=== PATIENT | male | born 1985 | race Caucasian/White ===

== ENCOUNTER 2017-10-08 14:57 | Emergency (ER) | payer MEDICAID ==
[~2017-10-08] VITALS: Ht 193 cm; Wt 76.2 kg
[2017-10-08 15:29] VITALS: BP 144/91
== END 2017-10-08 17:55 | disposition home or self-care (01) ==
LOC: ER 14:57
DX: K59.00 Constipation, unspecified (principal); R10.84 Generalized abdominal pain; R11.2 Nausea with vomiting, unspecified
CPT/HCPCS: 74176

== ENCOUNTER 2017-12-02 08:31 | Emergency (ER) | payer MEDICAID ==
[~2017-12-02] VITALS: Ht 193 cm; Wt 79.8 kg
[2017-12-02 08:43] VITALS: BP 153/109
[2017-12-02] MEDS ORDERED: SODIUM CHLORIDE 0.9% 1,000 ML IVB ONE (08:48)
[2017-12-02] MEDS ORDERED: PANTOPRAZOLE 40 MG/10 ML VIAL IV STA (08:48)
[2017-12-02] MEDS ORDERED: MORPHINE SULFATE 4 MG/ML SYR/VIAL IV ONE (09:00)
[2017-12-02] MEDS ORDERED: ONDANSETRON HCL 4 MG/2 ML VIAL IV ONE (09:00)
[2017-12-02 09:10] LABS: Basophils # (auto) 0.1 uL; Eosinophils # (auto) 0.2 uL; Eosinophils % (auto) 3.5 % (0.0-7.0); Hematocrit 47.2 % (41.0-53.0); Hemoglobin 16.2 g/dL (13.5-17.5); Lymphocytes # (auto) 1.4 uL; Lymphocytes % (auto) 26.2 % (10.0-50.0); Mean Corpuscular Hemoglobin 30.8 pg (28.0-32.0); Mean Corpuscular Hgb Conc. 34.3 g/dL (32.0-36.0); Mean Corpuscular Volume 89.8 fL (80.0-100.0); Monocytes # (auto) 0.4 uL; Monocytes % (auto) 6.7 % (0.0-12.0); Neutrophils # (auto) 3.4 uL; Neutrophils % (auto) 62.6 % (37.0-80.0); Nucleated Red Blood Cells % 0.1 %; Platelet Count (auto) 204 10^3/uL (140-450); Red Blood Cells 5.26 10^6/uL (4.5-5.90); Red Cell Distribution Width 13.1 % (11.8-14.3); White Blood Cell 5.4 10^3/uL (4.4-10.8)
[2017-12-02 09:24] LABS: Albumin 4.4 g/dL (3.4-5.0); BUN/Creatinine Ratio 19.4; Bilirubin, Total 0.4 mg/dL (0.2-1.0); Calcium 8.7 mg/dL (8.5-10.1); Potassium 3.8 mmol/L (3.5-5.1); Total Protein 7.9 g/dL (6.4-8.2)
== END 2017-12-02 10:29 | disposition home or self-care (01) ==
LOC: ER 08:31
DX: K29.70 Gastritis, unspecified, without bleeding (principal); R11.10 Vomiting, unspecified; F15.10 Other stimulant abuse, uncomplicated
CPT/HCPCS: 36415; 80053; 83690; 85025; 94761; 96361; 96374; 96375; 99284; C9113; J2270; J2405; J7030

== ENCOUNTER 2018-04-26 06:34 | Inpatient (IN) | payer MEDICAID ==
[~2018-04-26] VITALS: Ht 193 cm; Wt 70.7 kg
[~2018-04-26 06:34] MED LIST: METR500T PO; PANT40TA2 PO; SUCR1TAB PO
[2018-04-26 07:24] LABS: Basophils # (auto) 0 uL; Basophils % (auto) 0.9 % (0.0-2.0); Eosinophils # (auto) 0.2 uL; Eosinophils % (auto) 4.1 % (0.0-7.0); Hematocrit 45.6 % (41.0-53.0); Hemoglobin 15.5 g/dL (13.5-17.5); Lymphocytes # (auto) 1.3 uL; Lymphocytes % (auto) 26.7 % (10.0-50.0); Mean Corpuscular Hemoglobin 29.8 pg (28.0-32.0); Mean Corpuscular Hgb Conc. 34.1 g/dL (32.0-36.0); Mean Corpuscular Volume 87.5 fL (80.0-100.0); Monocytes # (auto) 0.4 uL; Monocytes % (auto) 8.2 % (0.0-12.0); Neutrophils # (auto) 2.8 uL; Neutrophils % (auto) 60.1 % (37.0-80.0); Platelet Count (auto) 289 10^3/uL (140-450); Red Blood Cells 5.21 10^6/uL (4.5-5.90); Red Cell Distribution Width 13.2 % (11.8-14.3); White Blood Cell 4.7 10^3/uL (4.4-10.8)
[2018-04-26 07:34] LABS: Albumin 4.2 g/dL (3.4-5.0); Bilirubin, Total 0.5 mg/dL (0.2-1.0); Calcium 9.1 mg/dL (8.5-10.1); Potassium 3.9 mmol/L (3.5-5.1)
[2018-04-26 09:10] LABS: Urine Bacteria NONE SEEN /hpf (None Seen); Urine Blood Negative /uL (Negative); Urine Mucus FEW (None Seen); Urine Specific Gravity 1.011 (1.001-1.035); Urine WBC 2 /hpf (0 - 3)
[2018-04-26] MEDS ORDERED: SODIUM CHLORIDE 0.9% 1,000 ML IV ONE (09:28)
[2018-04-26] MEDS ORDERED: PROMETHAZINE HCL 25 MG/ML 1ML IV PRN (09:30)
[2018-04-26] MEDS ORDERED: MORPHINE SULFATE 4 MG/ML SYR/VIAL IV ONE (09:30)
[2018-04-26] MEDS ORDERED: FLEET MINERAL OIL ENEMA 133 ML PR ONE (10:15)
[2018-04-26] MEDS ORDERED: MILK OF MAGNESIA 30ML SUSP PO ONE (10:30)
[2018-04-26] MEDS ORDERED: SODIUM CHLORIDE 0.9% 1,000 ML IV SCH (13:44)
[2018-04-26] MEDS ORDERED: cefTRIAXone 1GM/10ml IVPUSH 10 ML IV ONE (13:45)
[2018-04-26] MEDS ORDERED: PANTOPRAZOLE 40 MG/10 ML VIAL IV ONE (13:45)
[2018-04-26] MEDS ORDERED: MORPHINE SULF INJ 2 MG/ML SYRINGE 1ML IV PRN (13:45)
[2018-04-26] MEDS ORDERED: NITROGLYCERIN 0.4 MG SL TAB SL PRN (13:45)
[2018-04-26] MEDS ORDERED: metroNIDAZOLE 500MG/100ML 100 ML IV ONE (14:00)
[2018-04-26] MEDS: PROMETHAZINE HCL 25 MG/ML 1ML IV PRN (14:08)
[2018-04-26 14:16] LABS: CRP High Sensitivity 0.06 mg/dL (< 0.3)
[2018-04-26] MEDS: SODIUM CHLORIDE 0.9% 1,000 ML IV SCH ×2 (15:29→23:53)
[2018-04-26] MEDS: MORPHINE SULFATE 4 MG/ML SYR/VIAL IV PRN ×2 (15:54→21:57)
[2018-04-26 17:22] VITALS: BP 132/66
[2018-04-26] MEDS: metroNIDAZOLE 500MG/100ML 100 ML IV SCH ×2 (18:12→23:53)
[2018-04-26] MEDS: LACTULOSE 20Gm/30ML SOLN PO PRN (18:34)
[2018-04-26 20:00] VITALS: BP 121/64
[2018-04-26 21:30] VITALS: BP 121/64
[2018-04-27] MEDS: PROMETHAZINE HCL 25 MG/ML 1ML IV PRN ×2 (01:54→08:56)
[2018-04-27] MEDS: SODIUM CHLORIDE 0.9% 1,000 ML IV SCH ×4 (04:25→23:06)
[2018-04-27 05:00] VITALS: BP 123/60
[2018-04-27] MEDS: metroNIDAZOLE 500MG/100ML 100 ML IV SCH ×4 (05:44→23:06)
[2018-04-27 07:13] LABS: Calcium 8.3 mg/dL (8.5-10.1)
[2018-04-27 07:17] LABS: Albumin 3.1 g/dL (3.4-5.0); BUN/Creatinine Ratio 12.2; Basophils # (auto) 0 uL; Basophils % (auto) 0.6 % (0.0-2.0); Eosinophils # (auto) 0.1 uL; Eosinophils % (auto) 3.5 % (0.0-7.0); Hematocrit 39.7 % (41.0-53.0); Hemoglobin 13.4 g/dL (13.5-17.5); Lymphocytes # (auto) 0.9 uL; Lymphocytes % (auto) 22.8 % (10.0-50.0); Mean Corpuscular Hgb Conc. 33.9 g/dL (32.0-36.0); Mean Corpuscular Volume 88.6 fL (80.0-100.0); Monocytes # (auto) 0.3 uL; Monocytes % (auto) 8.5 % (0.0-12.0); Neutrophils # (auto) 2.4 uL; Neutrophils % (auto) 64.6 % (37.0-80.0); Platelet Count (auto) 229 10^3/uL (140-450); Red Blood Cells 4.48 10^6/uL (4.5-5.90); Red Cell Distribution Width 13.3 % (11.8-14.3); White Blood Cell 3.7 10^3/uL (4.4-10.8)
[2018-04-27 07:20] LABS: Bilirubin, Total 0.6 mg/dL (0.2-1.0)
[2018-04-27] MEDS: cefTRIAXone 1GM/10ml IVPUSH 10 ML IV SCH (08:57)
[2018-04-27] MEDS: LORazepam 2MG/ML-1ML VIAL IV PRN ×2 (08:57→22:04)
[2018-04-27 09:00] VITALS: BP 104/63
[2018-04-27] MEDS ORDERED: PANTOPRAZOLE 40 MG/10 ML VIAL IV SCH (10:00)
[2018-04-27] MEDS: PANTOPRAZOLE 40 MG/10 ML VIAL IV SCH ×2 (10:00→22:04)
[2018-04-27] MEDS: MORPHINE SULFATE 4 MG/ML SYR/VIAL IV PRN ×2 (11:08→23:05)
[2018-04-27 12:57] VITALS: BP 108/66
[2018-04-27] MEDS ORDERED: HYDR2.5L TOP (14:16)
[2018-04-27] MEDS ORDERED: ASCO500T11 PO (14:17)
[2018-04-27] MEDS ORDERED: MULT-569 PO (14:17)
[2018-04-27] MEDS ORDERED: OMEG100078 PO (14:17)
[2018-04-27] MEDS ORDERED: RANI150C11 PO (14:17)
[2018-04-27] MEDS ORDERED: ECHI80CA PO (14:17)
[2018-04-27] MEDS ORDERED: MISCTAB27 OR (14:17)
[2018-04-27] MEDS ORDERED: LACTCAP35 OR (14:17)
[2018-04-27 14:26] LABS: INR 1.08 (0.9-1.15); Partial Thromboplastin Time 27.5 sec (23.78-33.04); Prothrombin Time 11.5 sec (9.27-12.13)
[2018-04-27 17:00] VITALS: BP 112/64
[2018-04-27 20:00] VITALS: BP 112/67
[2018-04-27 22:00] VITALS: BP 112/67
[2018-04-28] MEDS: MORPHINE SULFATE 4 MG/ML SYR/VIAL IV PRN ×4 (03:25→21:13)
[2018-04-28 05:00] VITALS: BP 114/75
[2018-04-28 05:48] LABS: Basophils # (auto) 0 uL; Basophils % (auto) 0.6 % (0.0-2.0); Eosinophils # (auto) 0.2 uL; Hematocrit 36.4 % (41.0-53.0); Hemoglobin 12.7 g/dL (13.5-17.5); Lymphocytes # (auto) 0.9 uL; Lymphocytes % (auto) 23.8 % (10.0-50.0); Mean Corpuscular Hemoglobin 30.9 pg (28.0-32.0); Mean Corpuscular Hgb Conc. 34.9 g/dL (32.0-36.0); Mean Corpuscular Volume 88.6 fL (80.0-100.0); Monocytes # (auto) 0.3 uL; Monocytes % (auto) 8.7 % (0.0-12.0); Neutrophils # (auto) 2.4 uL; Neutrophils % (auto) 62.9 % (37.0-80.0); Platelet Count (auto) 196 10^3/uL (140-450); Red Blood Cells 4.11 10^6/uL (4.5-5.90); Red Cell Distribution Width 13.2 % (11.8-14.3); White Blood Cell 3.8 10^3/uL (4.4-10.8)
[2018-04-28] MEDS: metroNIDAZOLE 500MG/100ML 100 ML IV SCH (05:57)
[2018-04-28] MEDS: SODIUM CHLORIDE 0.9% 1,000 ML IV SCH ×3 (05:57→21:13)
[2018-04-28 06:04] LABS: BUN/Creatinine Ratio 9.9; Calcium 7.8 mg/dL (8.5-10.1)
[2018-04-28] MEDS: PROMETHAZINE HCL 25 MG/ML 1ML IV PRN ×3 (07:54→21:12)
[2018-04-28] MEDS: cefTRIAXone 1GM/10ml IVPUSH 10 ML IV SCH (07:54)
[2018-04-28] MEDS ORDERED: SODIUM CHLORIDE LOCK 10 ML ONE (08:15)
[2018-04-28] MEDS ORDERED: diphenhdrAMINE HCL 50 MG/1 ML VL ONE (08:16)
[2018-04-28 08:45] VITALS: BP 121/71
[2018-04-28] MEDS: LORazepam 2MG/ML-1ML VIAL IV PRN ×2 (09:27→22:27)
[2018-04-28] MEDS: PANTOPRAZOLE 40 MG/10 ML VIAL IV SCH (09:44)
[2018-04-28] MEDS: MIDAZOLAM HCL 5 MG/ML-1ML VIAL ONE ×2 (10:32→10:35)
[2018-04-28] MEDS: fentaNYL CITRATE 100 MCG/2 ML VL ONE ×2 (10:32→10:35)
[2018-04-28] MEDS ORDERED: LIDOCAINE VISCOUS 2% 15ML UD ONE (10:56)
[2018-04-28] MEDS: SUCRALFATE 1 GM/10 ML ORAL SUSP PO SCH ×3 (11:30→22:26)
[2018-04-28 13:00] VITALS: BP 123/70
[2018-04-28 15:09] LABS: Amylase 63 U/L (25-115); Lipase 199 U/L (73-393)
[2018-04-28 17:01] VITALS: BP 136/87
[2018-04-28 20:00] VITALS: BP 139/88
[2018-04-28 21:56] VITALS: BP 139/88
[2018-04-28] MEDS: PANTOPRAZOLE 40 MG TAB PO SCH (22:26)
[2018-04-29] MEDS: PROMETHAZINE HCL 25 MG/ML 1ML IV PRN ×4 (02:02→19:53)
[2018-04-29] MEDS: MORPHINE SULFATE 4 MG/ML SYR/VIAL IV PRN ×2 (02:02→08:01)
[2018-04-29] MEDS: SODIUM CHLORIDE 0.9% 1,000 ML IV SCH ×2 (02:30→10:30)
[2018-04-29] MEDS: LORazepam 2MG/ML-1ML VIAL IV PRN ×3 (04:59→23:17)
[2018-04-29 05:00] VITALS: BP 129/82
[2018-04-29 05:38] LABS: Basophils # (auto) 0 uL; Basophils % (auto) 0.5 % (0.0-2.0); Eosinophils # (auto) 0.2 uL; Hematocrit 36.4 % (41.0-53.0); Hemoglobin 12.7 g/dL (13.5-17.5); Lymphocytes # (auto) 0.9 uL; Lymphocytes % (auto) 23.5 % (10.0-50.0); Mean Corpuscular Hemoglobin 30.7 pg (28.0-32.0); Mean Corpuscular Hgb Conc. 34.9 g/dL (32.0-36.0); Mean Corpuscular Volume 87.9 fL (80.0-100.0); Monocytes # (auto) 0.4 uL; Monocytes % (auto) 9.4 % (0.0-12.0); Neutrophils # (auto) 2.5 uL; Neutrophils % (auto) 62.6 % (37.0-80.0); Nucleated Red Blood Cells % 0.1 %; Platelet Count (auto) 189 10^3/uL (140-450); Red Blood Cells 4.15 10^6/uL (4.5-5.90); Red Cell Distribution Width 13.3 % (11.8-14.3)
[2018-04-29 05:59] LABS: BUN/Creatinine Ratio 7.7; Calcium 7.5 mg/dL (8.5-10.1); Potassium 3.7 mmol/L (3.5-5.1)
[2018-04-29] MEDS: SUCRALFATE 1 GM/10 ML ORAL SUSP PO SCH ×4 (07:24→22:23)
[2018-04-29 09:00] VITALS: BP 142/83
[2018-04-29] MEDS: PANTOPRAZOLE 40 MG TAB PO SCH ×2 (10:30→22:23)
[2018-04-29 13:34] VITALS: BP 123/76
[2018-04-29] MEDS: MORPHINE SULF INJ 2 MG/ML SYRINGE 1ML IV PRN ×2 (15:04→19:56)
[2018-04-29 17:02] VITALS: BP 121/81
[2018-04-29] MEDS: Ensure Enlive Strawberry 8oz Bottle PO SCH (18:17)
[2018-04-29 20:00] VITALS: BP 129/79
[2018-04-29 22:00] VITALS: BP 129/79
[2018-04-29] MEDS: LACTULOSE 20Gm/30ML SOLN PO PRN (22:22)
[2018-04-30] MEDS: MORPHINE SULF INJ 2 MG/ML SYRINGE 1ML IV PRN ×2 (00:25→21:13)
[2018-04-30] MEDS: PROMETHAZINE HCL 25 MG/ML 1ML IV PRN (00:26)
[2018-04-30 01:39] LABS: Alcohol, Urine < 3.0 mg/dL (0-5); Amphetamine Screen, Urine NEGATIVE (NEGATIVE); Barbiturate Scree,Urine NEGATIVE (NEGATIVE); Benzodiazephine Screen, Urine NEGATIVE (NEGATIVE); Cannabinoid Screen, Urine POSITIVE (NEGATIVE); Cocaine Screen, Urine NEGATIVE (NEGATIVE); Opiate Scree,Urine NEGATIVE (NEGATIVE); Phencyclidine Screen, Urine NEGATIVE (NEGATIVE)
[2018-04-30 05:00] VITALS: BP 134/65
[2018-04-30 05:40] LABS: Basophils # (auto) 0 uL; Basophils % (auto) 0.7 % (0.0-2.0); Eosinophils # (auto) 0.2 uL; Eosinophils % (auto) 5.5 % (0.0-7.0); Hematocrit 35.7 % (41.0-53.0); Hemoglobin 12.7 g/dL (13.5-17.5); Lymphocytes # (auto) 1.1 uL; Lymphocytes % (auto) 26.3 % (10.0-50.0); Mean Corpuscular Hemoglobin 30.8 pg (28.0-32.0); Mean Corpuscular Hgb Conc. 35.6 g/dL (32.0-36.0); Mean Corpuscular Volume 86.5 fL (80.0-100.0); Monocytes # (auto) 0.4 uL; Monocytes % (auto) 10.1 % (0.0-12.0); Neutrophils # (auto) 2.5 uL; Neutrophils % (auto) 57.4 % (37.0-80.0); Nucleated Red Blood Cells % 0.2 %; Platelet Count (auto) 182 10^3/uL (140-450); Red Blood Cells 4.12 10^6/uL (4.5-5.90); Red Cell Distribution Width 12.9 % (11.8-14.3); White Blood Cell 4.3 10^3/uL (4.4-10.8)
[2018-04-30 05:57] LABS: BUN/Creatinine Ratio 8.8; Calcium 7.6 mg/dL (8.5-10.1); Potassium 3.5 mmol/L (3.5-5.1)
[2018-04-30] MEDS: SUCRALFATE 1 GM/10 ML ORAL SUSP PO SCH ×4 (07:00→22:29)
[2018-04-30] MEDS: Ensure Enlive Strawberry 8oz Bottle PO SCH ×2 (08:00→18:26)
[2018-04-30 09:00] VITALS: BP 133/71
[2018-04-30] MEDS ORDERED: MAGNESIUM CITRATE SOLUTION 300 ML BTL PO ONE (09:00)
[2018-04-30] MEDS: PANTOPRAZOLE 40 MG TAB PO SCH ×2 (10:34→22:29)
[2018-04-30 13:00] VITALS: BP 139/88
[2018-04-30] MEDS: LORazepam 2MG/ML-1ML VIAL IV PRN ×2 (13:16→22:29)
[2018-04-30 17:00] VITALS: BP 126/77
[2018-04-30 20:00] VITALS: BP 139/78
[2018-04-30] MEDS: ONDANSETRON HCL 4 MG/2 ML VIAL IV PRN (21:12)
[2018-04-30 22:00] VITALS: BP 139/78
[2018-04-30] MEDS: LACTULOSE 20Gm/30ML SOLN PO PRN (22:29)
[2018-05-01] MEDS: ONDANSETRON HCL 4 MG/2 ML VIAL IV PRN ×2 (02:26→11:58)
[2018-05-01 05:18] VITALS: BP 134/78
[2018-05-01 05:33] LABS: Basophils # (auto) 0 uL; Basophils % (auto) 0.8 % (0.0-2.0); Eosinophils # (auto) 0.3 uL; Eosinophils % (auto) 6.3 % (0.0-7.0); Hematocrit 41.4 % (41.0-53.0); Hemoglobin 14.4 g/dL (13.5-17.5); Lymphocytes # (auto) 1.1 uL; Lymphocytes % (auto) 25.2 % (10.0-50.0); Mean Corpuscular Hemoglobin 30.5 pg (28.0-32.0); Mean Corpuscular Hgb Conc. 34.9 g/dL (32.0-36.0); Mean Corpuscular Volume 87.4 fL (80.0-100.0); Monocytes # (auto) 0.4 uL; Monocytes % (auto) 10.2 % (0.0-12.0); Neutrophils # (auto) 2.5 uL; Neutrophils % (auto) 57.5 % (37.0-80.0); Nucleated Red Blood Cells % 0.1 %; Platelet Count (auto) 177 10^3/uL (140-450); Red Blood Cells 4.74 10^6/uL (4.5-5.90); Red Cell Distribution Width 13.2 % (11.8-14.3); White Blood Cell 4.3 10^3/uL (4.4-10.8)
[2018-05-01 05:51] LABS: BUN/Creatinine Ratio 7.5; Calcium 8.2 mg/dL (8.5-10.1); Potassium 3.4 mmol/L (3.5-5.1)
[2018-05-01] MEDS: SUCRALFATE 1 GM/10 ML ORAL SUSP PO SCH ×4 (07:00→21:22)
[2018-05-01] MEDS: Ensure Enlive Strawberry 8oz Bottle PO SCH ×2 (08:00→19:14)
[2018-05-01 08:25] VITALS: BP 137/80
[2018-05-01] MEDS ORDERED: FLEET ENEMA(ADULT) 135 ML PR ONE (09:30)
[2018-05-01] MEDS: PANTOPRAZOLE 40 MG TAB PO SCH ×2 (10:00→21:22)
[2018-05-01] MEDS: LORazepam 2MG/ML-1ML VIAL IV PRN ×2 (11:58→20:15)
[2018-05-01 17:00] VITALS: BP 141/68
[2018-05-01 22:00] VITALS: BP 117/72
[2018-05-02 05:30] VITALS: BP 119/57
[2018-05-02 05:56] LABS: Basophils # (auto) 0 uL; Basophils % (auto) 0.6 % (0.0-2.0); Eosinophils # (auto) 0.3 uL; Hemoglobin 13.8 g/dL (13.5-17.5); Lymphocytes # (auto) 1.2 uL; Lymphocytes % (auto) 26.7 % (10.0-50.0); Mean Corpuscular Hemoglobin 30.6 pg (28.0-32.0); Mean Corpuscular Hgb Conc. 35.3 g/dL (32.0-36.0); Mean Corpuscular Volume 86.6 fL (80.0-100.0); Monocytes # (auto) 0.5 uL; Monocytes % (auto) 10.9 % (0.0-12.0); Neutrophils # (auto) 2.5 uL; Neutrophils % (auto) 54.8 % (37.0-80.0); Nucleated Red Blood Cells % 0.1 %; Platelet Count (auto) 179 10^3/uL (140-450); White Blood Cell 4.5 10^3/uL (4.4-10.8)
[2018-05-02 06:20] LABS: BUN/Creatinine Ratio 9.6; Calcium 8.5 mg/dL (8.5-10.1); Potassium 3.3 mmol/L (3.5-5.1)
[2018-05-02] MEDS: SUCRALFATE 1 GM/10 ML ORAL SUSP PO SCH ×4 (06:21→21:31)
[2018-05-02] MEDS: Ensure Enlive Strawberry 8oz Bottle PO SCH ×2 (08:00→18:43)
[2018-05-02] MEDS ORDERED: POTASSIUM CHL 20 Meq TABLET PO ONE (08:30)
[2018-05-02 08:57] VITALS: BP 132/76
[2018-05-02] MEDS: PIPERACILLIN-TAZOB 3.375GM 100 ML IV SCH ×3 (09:00→20:51)
[2018-05-02] MEDS: LACTULOSE 20Gm/30ML SOLN PO PRN (10:42)
[2018-05-02] MEDS: PANTOPRAZOLE 40 MG TAB PO SCH ×2 (10:44→21:31)
[2018-05-02] MEDS: LORazepam 2MG/ML-1ML VIAL IV PRN ×3 (10:44→23:37)
[2018-05-02 11:54] VITALS: BP 145/83
[2018-05-02] MEDS: D5W/SOD CHL 0.45%/KCL 40MEQ 1,000 ML IV SCH (13:45)
[2018-05-02] MEDS ORDERED: LORazepam 2MG/ML-1ML VIAL ONE (17:16)
[2018-05-02] MEDS: BISACODYL 5 MG EC TAB PO PRN (17:39)
[2018-05-02 17:42] VITALS: BP 147/86
[2018-05-02 21:55] VITALS: BP 151/91
[2018-05-03] MEDS: PIPERACILLIN-TAZOB 3.375GM 100 ML IV SCH ×4 (03:02→21:27)
[2018-05-03] MEDS: D5W/SOD CHL 0.45%/KCL 40MEQ 1,000 ML IV SCH ×3 (03:02→16:53)
[2018-05-03 05:30] VITALS: BP 114/70
[2018-05-03] MEDS: SUCRALFATE 1 GM/10 ML ORAL SUSP PO SCH ×4 (06:06→21:45)
[2018-05-03] MEDS: Ensure Enlive Strawberry 8oz Bottle PO SCH ×2 (07:44→18:00)
[2018-05-03 08:00] VITALS: BP 109/65
[2018-05-03 08:47] VITALS: BP 109/65
[2018-05-03] MEDS: PANTOPRAZOLE 40 MG TAB PO SCH ×2 (09:37→21:45)
[2018-05-03] MEDS ORDERED: MIDAZOLAM HCL 1MG/1ML-2 ML VIAL ONE (11:48)
[2018-05-03] MEDS ORDERED: LIDOCAINE 2% (LOCAL ANESTH.) PF 5ml SDV ONE (11:49)
[2018-05-03] MEDS ORDERED: ROCURONIUM 10MG/ML 10ML VIAL IV ONE (11:49)
[2018-05-03] MEDS ORDERED: MEPERIDINE HCL (50 MG/ML) 1 ML VIAL ONE (11:56)
[2018-05-03 12:34] VITALS: BP 123/82
[2018-05-03] MEDS ORDERED: PROPOFOL 10 MG/ML 20 ML IV ONE (12:42)
[2018-05-03] MEDS ORDERED: fentaNYL CITRATE 100 MCG/2 ML VL ONE (13:37)
[2018-05-03] MEDS ORDERED: PHENYLEPHRINE HCL 10 MG/ML VL ONE (13:44)
[2018-05-03] MEDS: ONDANSETRON HCL 4 MG/2 ML VIAL IV ONE ×2 (13:45→15:13)
[2018-05-03] MEDS ORDERED: FLUMAZENIL 0.1 MG/ML INJ 10ML MDV IV ONE (13:45)
[2018-05-03] MEDS ORDERED: LIDOCAINE HCL 2% TOP JELLY 5ML TOP ONE (14:04)
[2018-05-03] MEDS ORDERED: KETOROLAC TROMETH 30 MG/ML 1ML VIAL ONE (14:23)
[2018-05-03] MEDS: MORPHINE SULFATE 4 MG/ML SYR/VIAL IV PRN ×8 (15:06→22:57)
[2018-05-03 17:09] VITALS: BP 131/85
[2018-05-03] MEDS: ONDANSETRON HCL 4 MG/2 ML VIAL IV PRN (20:11)
[2018-05-03 22:00] VITALS: BP 164/98
[2018-05-04] MEDS: D5W/SOD CHL 0.45%/KCL 40MEQ 1,000 ML IV SCH ×3 (00:46→16:00)
[2018-05-04] MEDS: MORPHINE SULFATE 4 MG/ML SYR/VIAL IV PRN ×4 (02:00→11:45)
[2018-05-04] MEDS: PIPERACILLIN-TAZOB 3.375GM 100 ML IV SCH ×4 (03:37→20:56)
[2018-05-04 05:30] VITALS: BP 124/67
[2018-05-04] MEDS: ONDANSETRON HCL 4 MG/2 ML VIAL IV PRN (05:39)
[2018-05-04] MEDS: SUCRALFATE 1 GM/10 ML ORAL SUSP PO SCH ×4 (06:20→21:27)
[2018-05-04 06:56] LABS: Basophils # (auto) 0 uL; Basophils % (auto) 0.4 % (0.0-2.0); Eosinophils # (auto) 0.3 uL; Hematocrit 44.1 % (41.0-53.0); Hemoglobin 15.4 g/dL (13.5-17.5); Lymphocytes # (auto) 1.1 uL; Lymphocytes % (auto) 20.5 % (10.0-50.0); Mean Corpuscular Hemoglobin 30.8 pg (28.0-32.0); Monocytes # (auto) 0.5 uL; Monocytes % (auto) 8.7 % (0.0-12.0); Neutrophils # (auto) 3.6 uL; Neutrophils % (auto) 64.4 % (37.0-80.0); Nucleated Red Blood Cells % 0.1 %; Platelet Count (auto) 185 10^3/uL (140-450); Red Blood Cells 5.01 10^6/uL (4.5-5.90); Red Cell Distribution Width 13.4 % (11.8-14.3); White Blood Cell 5.6 10^3/uL (4.4-10.8)
[2018-05-04 07:14] LABS: BUN/Creatinine Ratio 8.3; Calcium 8.6 mg/dL (8.5-10.1)
[2018-05-04] MEDS: Ensure Enlive Strawberry 8oz Bottle PO SCH ×2 (08:00→19:53)
[2018-05-04] MEDS ORDERED: PROCHLORPERAZINE EDISYLATE 5 MG/ML 2ML VIAL IV PRN (08:30)
[2018-05-04] MEDS ORDERED: PROCHLORPERAZINE EDISYLATE 5 MG/ML 2ML VIAL ONE (08:37)
[2018-05-04 08:53] VITALS: BP 137/65
[2018-05-04] MEDS: PANTOPRAZOLE 40 MG TAB PO SCH ×2 (10:51→21:26)
[2018-05-04 13:34] VITALS: BP 125/59
[2018-05-04] MEDS: HYDROcodone-ACET 5/325MG TAB PO PRN ×2 (14:47→21:01)
[2018-05-04 16:46] VITALS: BP 133/72
[2018-05-04] MEDS: LORazepam 2MG/ML-1ML VIAL IV PRN (17:31)
[2018-05-04 20:00] VITALS: BP 128/77
[2018-05-04 22:00] VITALS: BP 128/77
[2018-05-05] MEDS: HYDROcodone-ACET 5/325MG TAB PO PRN ×3 (01:02→09:25)
[2018-05-05] MEDS: LACTULOSE 20Gm/30ML SOLN PO PRN (01:04)
[2018-05-05] MEDS: LORazepam 2MG/ML-1ML VIAL IV PRN (02:31)
[2018-05-05] MEDS: ONDANSETRON HCL 4 MG/2 ML VIAL IV PRN ×2 (02:36→11:35)
[2018-05-05] MEDS: PIPERACILLIN-TAZOB 3.375GM 100 ML IV SCH ×2 (02:36→09:25)
[2018-05-05 05:00] VITALS: BP 116/71
[2018-05-05 06:34] LABS: BUN/Creatinine Ratio 7.1; Calcium 8.6 mg/dL (8.5-10.1); Potassium 4.1 mmol/L (3.5-5.1)
[2018-05-05] MEDS: SUCRALFATE 1 GM/10 ML ORAL SUSP PO SCH ×2 (06:34→11:35)
[2018-05-05 06:35] LABS: Basophils # (auto) 0 uL; Basophils % (auto) 0.4 % (0.0-2.0); Eosinophils # (auto) 0.3 uL; Eosinophils % (auto) 4.4 % (0.0-7.0); Hematocrit 44.5 % (41.0-53.0); Hemoglobin 15.5 g/dL (13.5-17.5); Lymphocytes # (auto) 0.9 uL; Lymphocytes % (auto) 14.4 % (10.0-50.0); Mean Corpuscular Hemoglobin 30.5 pg (28.0-32.0); Mean Corpuscular Hgb Conc. 34.7 g/dL (32.0-36.0); Mean Corpuscular Volume 87.9 fL (80.0-100.0); Monocytes # (auto) 0.5 uL; Monocytes % (auto) 7.5 % (0.0-12.0); Neutrophils # (auto) 4.5 uL; Neutrophils % (auto) 73.3 % (37.0-80.0); Platelet Count (auto) 186 10^3/uL (140-450); Red Blood Cells 5.06 10^6/uL (4.5-5.90); Red Cell Distribution Width 13.6 % (11.8-14.3); White Blood Cell 6.2 10^3/uL (4.4-10.8)
[2018-05-05] MEDS: Ensure Enlive Strawberry 8oz Bottle PO SCH (08:13)
[2018-05-05 09:16] VITALS: BP 121/69
[2018-05-05] MEDS: PANTOPRAZOLE 40 MG TAB PO SCH (09:25)
[2018-05-05] MEDS: BISACODYL 5 MG EC TAB PO PRN (09:31)
[2018-05-05] MEDS ORDERED: MILK OF MAGNESIA 30ML SUSP PO ONE (12:00)
[2018-05-05 13:00] VITALS: BP 136/78
== END 2018-05-05 18:15 | disposition home or self-care (01) | DRG 263 ==
LOC: ER 06:34 → TELE 06:35 → TELE-CENTR 14:36 → CENTRAL 04-29 12:43
PROVIDERS: ADMIT Internal Medicine; ATTEND Internal Medicine
PROC: 0DB98ZX Excision of Duodenum, Via Natural or Artificial Opening Endoscopic, Diagnostic (ICD-10-PCS; 2018-04-28)
PROC: 0DB68ZX Excision of Stomach, Via Natural or Artificial Opening Endoscopic, Diagnostic (ICD-10-PCS; 2018-04-28)
PROC: 0FT40ZZ Resection of Gallbladder, Open Approach (ICD-10-PCS; 2018-05-03)
PROC: 0FJ44ZZ Inspection of Gallbladder, Percutaneous Endoscopic Approach (ICD-10-PCS; principal; 2018-05-03 13:18)
DX: K81.0 Acute cholecystitis (principal); E87.8 Other disorders of electrolyte and fluid balance, not elsewhere classified; Z68.1 Body mass index [BMI] 19.9 or less, adult; E87.6 Hypokalemia; K59.00 Constipation, unspecified; F17.200 Nicotine dependence, unspecified, uncomplicated; K81.1 Chronic cholecystitis; F12.90 Cannabis use, unspecified, uncomplicated; G89.29 Other chronic pain; R63.4 Abnormal weight loss; Z83.3 Family history of diabetes mellitus; Z82.49 Family history of ischemic heart disease and other diseases of the circulatory system; Z53.31 Laparoscopic surgical procedure converted to open procedure
CPT/HCPCS: 36415; 43239; 74176; 76705; 78226; 80048; 80053; 80307; 81001; 82150; 82247; 83690; 84132; 85025; 85610; 85652; 85730; 86141; 86703; 86850; 86900; 86901; 87081; 96361; 96374; 96375; A6257; C9113; J0696; J1885; J2001; J2250; J2405; J2543; J2704; J3490

== ENCOUNTER 2018-05-28 13:08 | Inpatient (IN) | payer MEDICAID ==
[~2018-05-28] VITALS: Ht 190.5 cm; Wt 78.8 kg
[~2018-05-28 13:08] MED LIST changes: +ASCO500T11 PO; +ECHI80CA PO; +HYDR2.5L TOP; +LACTCAP35 OR; -METR500T PO; +MISCTAB27 OR; +MULT-569 PO; +OMEG100078 PO; +RANI150C11 PO
[2018-05-28] MEDS ORDERED: PROCHLORPERAZINE EDISYLATE 5 MG/ML 2ML VIAL IV ONE (13:30)
[2018-05-28 13:53] LABS: Basophils # (auto) 0 uL; Basophils % (auto) 0.3 % (0.0-2.0); Eosinophils # (auto) 0 uL; Eosinophils % (auto) 0.2 % (0.0-7.0); Hematocrit 44.3 % (41.0-53.0); Hemoglobin 15.1 g/dL (13.5-17.5); Lymphocytes # (auto) 0.8 uL; Lymphocytes % (auto) 7.9 % (10.0-50.0); Mean Corpuscular Hgb Conc. 34.2 g/dL (32.0-36.0); Mean Corpuscular Volume 87.7 fL (80.0-100.0); Monocytes # (auto) 0.7 uL; Monocytes % (auto) 6.5 % (0.0-12.0); Neutrophils # (auto) 8.8 uL; Neutrophils % (auto) 85.1 % (37.0-80.0); Platelet Count (auto) 202 10^3/uL (140-450); Red Blood Cells 5.05 10^6/uL (4.5-5.90); Red Cell Distribution Width 13.3 % (11.8-14.3); White Blood Cell 10.3 10^3/uL (4.4-10.8)
[2018-05-28 14:09] LABS: Albumin 4.3 g/dL (3.4-5.0); BUN/Creatinine Ratio 10.1; Calcium 10.2 mg/dL (8.5-10.1); Magnesium 1.7 mg/dL (1.6-2.6); Potassium 3.5 mmol/L (3.5-5.1)
[2018-05-28 14:12] LABS: Bilirubin, Total 1.1 mg/dL (0.2-1.0); Total Protein 8.2 g/dL (6.4-8.2)
[2018-05-28] MEDS ORDERED: PANTOPRAZOLE 40 MG/10 ML VIAL IV ONE (14:15)
[2018-05-28] MEDS ORDERED: MORPHINE SULFATE 4 MG/ML SYR/VIAL IV ONE (14:15)
[2018-05-28] MEDS ORDERED: LORazepam 2MG/ML-1ML VIAL IV ONE (14:45)
[2018-05-28 21:37] LABS: Urine Bacteria NONE SEEN /hpf (None Seen); Urine Blood Negative /uL (Negative); Urine Mucus FEW (None Seen); Urine WBC 25 /hpf (0 - 3)
[2018-05-28 21:55] LABS: Amphetamine Screen, Urine NEGATIVE (NEGATIVE); Barbiturate Scree,Urine NEGATIVE (NEGATIVE); Benzodiazephine Screen, Urine NEGATIVE (NEGATIVE); Cannabinoid Screen, Urine POSITIVE (NEGATIVE); Cocaine Screen, Urine NEGATIVE (NEGATIVE); Phencyclidine Screen, Urine NEGATIVE (NEGATIVE)
[2018-05-28 21:58] LABS: Opiate Scree,Urine POSITIVE (NEGATIVE)
[2018-05-28] MEDS ORDERED: ACETAMINOPHEN 500 MG TAB PO PRN (22:30)
[2018-05-28] MEDS ORDERED: HYDROcodone-ACET 5/325MG TAB PO PRN (22:30)
[2018-05-28 23:00] VITALS: BP 133/87
[2018-05-29] VITALS (8 sets, daily range): BP systolic 106–155; BP diastolic 66–96
[2018-05-29] MEDS: ONDANSETRON HCL 4 MG/2 ML VIAL IV PRN ×3 (00:07→19:59)
[2018-05-29] MEDS: SODIUM CHLORIDE 0.9% 1,000 ML IV SCH ×2 (00:07→11:54)
[2018-05-29] MEDS ORDERED: metroNIDAZOLE 500MG/100ML 100 ML IV ONE (05:30)
[2018-05-29 07:24] LABS: Basophils # (auto) 0 uL; Basophils % (auto) 0.5 % (0.0-2.0); Eosinophils # (auto) 0.2 uL; Eosinophils % (auto) 2.5 % (0.0-7.0); Hematocrit 39.5 % (41.0-53.0); Lymphocytes # (auto) 1.1 uL; Lymphocytes % (auto) 16.2 % (10.0-50.0); Mean Corpuscular Hemoglobin 31.4 pg (28.0-32.0); Mean Corpuscular Hgb Conc. 35.5 g/dL (32.0-36.0); Mean Corpuscular Volume 88.5 fL (80.0-100.0); Monocytes # (auto) 0.8 uL; Monocytes % (auto) 11.4 % (0.0-12.0); Neutrophils # (auto) 4.7 uL; Neutrophils % (auto) 69.4 % (37.0-80.0); Platelet Count (auto) 173 10^3/uL (140-450); Red Blood Cells 4.46 10^6/uL (4.5-5.90); Red Cell Distribution Width 13.3 % (11.8-14.3); White Blood Cell 6.7 10^3/uL (4.4-10.8)
[2018-05-29 07:44] LABS: BUN/Creatinine Ratio 18.5; Calcium 8.5 mg/dL (8.5-10.1)
[2018-05-29] MEDS: cefTRIAXone 1GM/10ml IVPUSH 10 ML IV SCH (08:40)
[2018-05-29] MEDS ORDERED: FLEET ENEMA(ADULT) 135 ML PR ONE (10:45)
[2018-05-29] MEDS ORDERED: GASTROGRAFIN 120 ML SOL ONE (12:04)
[2018-05-29] MEDS: LORazepam 0.5 MG TAB PO PRN (14:00)
[2018-05-29] MEDS ORDERED: GOLYTELY 4L KIT PO ONE (14:15)
[2018-05-30] MEDS: SODIUM CHLORIDE 0.9% 1,000 ML IV SCH ×2 (01:54→14:37)
[2018-05-30] MEDS: MORPHINE SULF INJ 2 MG/ML SYRINGE 1ML IV PRN ×2 (01:54→18:53)
[2018-05-30] MEDS: ONDANSETRON HCL 4 MG/2 ML VIAL IV PRN ×3 (02:02→18:53)
[2018-05-30] MEDS: LORazepam 0.5 MG TAB PO PRN ×2 (04:05→21:51)
[2018-05-30 04:59] VITALS: BP 120/60
[2018-05-30] MEDS ORDERED: GOLYTELY 4L KIT PO ONE (06:00)
[2018-05-30 07:22] LABS: Basophils # (auto) 0 uL; Basophils % (auto) 0.6 % (0.0-2.0); Eosinophils # (auto) 0.1 uL; Eosinophils % (auto) 2.8 % (0.0-7.0); Hematocrit 40.9 % (41.0-53.0); Hemoglobin 14.2 g/dL (13.5-17.5); Lymphocytes # (auto) 1.3 uL; Lymphocytes % (auto) 28.4 % (10.0-50.0); Mean Corpuscular Hemoglobin 30.6 pg (28.0-32.0); Mean Corpuscular Hgb Conc. 34.7 g/dL (32.0-36.0); Monocytes # (auto) 0.5 uL; Monocytes % (auto) 10.6 % (0.0-12.0); Neutrophils # (auto) 2.7 uL; Neutrophils % (auto) 57.6 % (37.0-80.0); Platelet Count (auto) 178 10^3/uL (140-450); Red Blood Cells 4.65 10^6/uL (4.5-5.90); Red Cell Distribution Width 13.3 % (11.8-14.3); White Blood Cell 4.6 10^3/uL (4.4-10.8)
[2018-05-30 07:33] LABS: INR 1.1 (0.9-1.15); Partial Thromboplastin Time 30.5 sec (23.78-33.04); Prothrombin Time 11.7 sec (9.27-12.13)
[2018-05-30 07:36] LABS: BUN/Creatinine Ratio 18.3; Calcium 8.6 mg/dL (8.5-10.1); Potassium 3.6 mmol/L (3.5-5.1)
[2018-05-30 08:05] VITALS: BP 123/71
[2018-05-30] MEDS ORDERED: SODIUM CHLORIDE LOCK 10 ML ONE (08:42)
[2018-05-30] MEDS ORDERED: diphenhdrAMINE HCL 50 MG/1 ML VL ONE (08:43)
[2018-05-30 09:00] VITALS: BP 123/71
[2018-05-30] MEDS: cefTRIAXone 1GM/10ml IVPUSH 10 ML IV SCH (09:14)
[2018-05-30] MEDS: fentaNYL CITRATE 100 MCG/2 ML VL ONE ×4 (11:49→12:03)
[2018-05-30] MEDS: MIDAZOLAM HCL 5 MG/ML-1ML VIAL ONE ×3 (11:49→11:58)
[2018-05-30] MEDS ORDERED: MIDAZOLAM HCL 5 MG/ML-1ML VIAL ONE (11:57)
[2018-05-30] MEDS: HYOSCYAMINE SULF 0.125 MG ODT TAB PO PRN ×2 (14:37→21:50)
[2018-05-30 17:12] VITALS: BP 128/71
[2018-05-30 22:00] VITALS: BP 121/68
[2018-05-31] MEDS: MORPHINE SULF INJ 2 MG/ML SYRINGE 1ML IV PRN (00:26)
[2018-05-31] MEDS: ONDANSETRON HCL 4 MG/2 ML VIAL IV PRN ×2 (00:26→08:20)
[2018-05-31] MEDS: SODIUM CHLORIDE 0.9% 1,000 ML IV SCH ×2 (03:50→09:39)
[2018-05-31 04:50] VITALS: BP 120/75
[2018-05-31 07:09] LABS: Basophils # (auto) 0 uL; Basophils % (auto) 0.7 % (0.0-2.0); Eosinophils # (auto) 0.2 uL; Eosinophils % (auto) 6.2 % (0.0-7.0); Hematocrit 37.3 % (41.0-53.0); Hemoglobin 12.8 g/dL (13.5-17.5); Lymphocytes # (auto) 0.9 uL; Lymphocytes % (auto) 28.9 % (10.0-50.0); Mean Corpuscular Hemoglobin 30.3 pg (28.0-32.0); Mean Corpuscular Hgb Conc. 34.4 g/dL (32.0-36.0); Mean Corpuscular Volume 88.1 fL (80.0-100.0); Monocytes # (auto) 0.4 uL; Monocytes % (auto) 11.7 % (0.0-12.0); Neutrophils # (auto) 1.6 uL; Neutrophils % (auto) 52.5 % (37.0-80.0); Nucleated Red Blood Cells % 0.1 %; Platelet Count (auto) 194 10^3/uL (140-450); Red Blood Cells 4.24 10^6/uL (4.5-5.90); Red Cell Distribution Width 12.9 % (11.8-14.3)
[2018-05-31 07:37] LABS: BUN/Creatinine Ratio 9.3; Potassium 4.1 mmol/L (3.5-5.1)
[2018-05-31] MEDS: cefTRIAXone 1GM/10ml IVPUSH 10 ML IV SCH (08:25)
[2018-05-31 09:00] VITALS: BP 130/80
[2018-05-31] MEDS: LORazepam 0.5 MG TAB PO PRN (11:55)
[2018-05-31 13:00] VITALS: BP 119/80
== END 2018-05-31 15:40 | disposition left against medical advice (07) | DRG 251 ==
LOC: EDBD 13:08 → ER 13:08 → OVERFLOW 13:09 → CENTRAL 23:54
PROVIDERS: ADMIT Nurse Practitioner Family; ATTEND Internal Medicine Pulmonary Disease
PROC: 0DBE8ZX Excision of Large Intestine, Via Natural or Artificial Opening Endoscopic, Diagnostic (ICD-10-PCS; 2018-05-30)
PROC: 0DBB8ZX Excision of Ileum, Via Natural or Artificial Opening Endoscopic, Diagnostic (ICD-10-PCS; principal; 2018-05-30 11:43)
DX: R10.9 Unspecified abdominal pain (principal); D69.2 Other nonthrombocytopenic purpura; K64.8 Other hemorrhoids; N30.01 Acute cystitis with hematuria; K81.1 Chronic cholecystitis; E11.9 Type 2 diabetes mellitus without complications; E87.6 Hypokalemia; R63.4 Abnormal weight loss; F12.90 Cannabis use, unspecified, uncomplicated; G89.29 Other chronic pain; I10 Essential (primary) hypertension; K59.00 Constipation, unspecified; Z53.21 Procedure and treatment not carried out due to patient leaving prior to being seen by health care provider; Z82.49 Family history of ischemic heart disease and other diseases of the circulatory system; Z90.49 Acquired absence of other specified parts of digestive tract; Z79.899 Other long term (current) drug therapy; Z83.3 Family history of diabetes mellitus; Z68.21 Body mass index [BMI] 21.0-21.9, adult
CPT/HCPCS: 36415; 45380; 74176; 74250; 80048; 80053; 80307; 81001; 82150; 83690; 83735; 85025; 85610; 85730; 86850; 86900; 86901; 87081; 87086; 94761; 96374; 96375; C9113; J0696; J2250; J2405; J3490

== ENCOUNTER 2018-09-16 09:16 | Emergency (ER) | payer SELFPAY ==
[~2018-09-16] VITALS: Ht 193 cm; Wt 72.6 kg
[2018-09-16 09:39] VITALS: BP 144/94
[2018-09-16 11:10] LABS: Basophils # (auto) 0 uL; Basophils % (auto) 0.2 % (0.0-2.0); Eosinophils # (auto) 0.1 uL; Eosinophils % (auto) 1.3 % (0.0-7.0); Hematocrit 49.1 % (41.0-53.0); Hemoglobin 16.6 g/dL (13.5-17.5); Lymphocytes # (auto) 1.1 uL; Lymphocytes % (auto) 11.3 % (10.0-50.0); Mean Corpuscular Hemoglobin 30.2 pg (28.0-32.0); Mean Corpuscular Hgb Conc. 33.9 g/dL (32.0-36.0); Mean Corpuscular Volume 89.1 fL (80.0-100.0); Monocytes # (auto) 0.4 uL; Monocytes % (auto) 4.7 % (0.0-12.0); Neutrophils # (auto) 7.7 uL; Neutrophils % (auto) 82.5 % (37.0-80.0); Platelet Count (auto) 228 10^3/uL (140-450); Red Blood Cells 5.51 10^6/uL (4.5-5.90); Red Cell Distribution Width 13.7 % (11.8-14.3); White Blood Cell 9.3 10^3/uL (4.4-10.8)
[2018-09-16 11:28] LABS: Albumin 4.5 g/dL (3.4-5.0); BUN/Creatinine Ratio 14.9; Calcium 9.7 mg/dL (8.5-10.1); Potassium 4.1 mmol/L (3.5-5.1)
[2018-09-16 11:31] LABS: Bilirubin, Total 0.5 mg/dL (0.2-1.0); Total Protein 8.4 g/dL (6.4-8.2)
== END 2018-09-16 15:00 | disposition left against medical advice (07) ==
LOC: ER 09:16
CPT/HCPCS: 36415; 80053; 84484; 85025; 93005